=== PATIENT | female | born 1950 | race Caucasian/White ===

== ENCOUNTER 2018-04-23 17:56 | Emergency (ER) | payer OTHER ==
--- OUTSIDE RECORDS SUMMARY | 2018-04-23 17:58 | XMS REPORT | Clinical Summary ---
:1950 Author Organization [facility] Address [address] [place] [id number] Care Team Providers Name Role Phone Jose Alberto Andrade MD Primary Care Provider Allergies Active Allergy Reactions Severity Noted Date Comments Nsaids (Non-Steroidal Anti-Inflammatory Drug) 10/22/1999 Current Medications Not on file Active Problems Not on file Encounters Date Type Specialty Care Team Description 01/01/2018 Emergency Emergency Medicine Honorio Romo Laceration of right hand MD Dilshad without foreign body, initial encounter (Primary Dx) after 04/22/2017 Immunizations Name Dates Previously Given Next Due Tdap 01/01/2018 Social History Tobacco Use Types Packs/Day Years Used Date Never Smoker Smokeless Tobacco: Never Used Alcohol Use Drinks/Week oz/Week Comments Yes Sex Assigned at Date Recorded Not on file Last Filed Vital Signs Vital Sign Reading Time Taken Blood Pressure 134/86 01/01/2018 10:50 AM CDT Pulse 72 01/01/2018 10:50 AM CDT Temperature 36.6 C (97.8 F) 01/01/2018 10:50 AM CDT Respiratory Rate 16 01/01/2018 10:50 AM CDT Oxygen Saturation 100% 01/01/2018 10:50 AM CDT Inhaled Oxygen Concentration - - Weight 61.2 kg (135 lb) 01/01/2018 10:50 AM CDT Height 157.5 cm (5' 2") 01/01/2018 10:50 AM CDT Body Mass Index 24.69 01/01/2018 10:50 AM CDT Plan of Treatment Health Maintenance Due Date Last Done Comments BREAST CANCER SCREENING 2001 SHINGRIX VACCINE (#1) 2001 ZOSTER VACCINE 2011 PNEUMOCOCCAL POLYSACCHARIDE VACCINE AGE 65 AND OVER 2016 PNEUMOCOCCAL-13 2016 INFLUENZA VACCINE 02/10/2018 COLON CANCER SCREENING 06/02/2027 06/02/2017 Procedures Procedure Name Priority Date/Time Associated Diagnosis Comments XR HAND 3+ VW RIGHT STAT 01/01/2018 11:05 AM Results for this CDT procedure are in the results section. WA RESUP NPTERF WND Routine 01/01/2018 11:01 AM Results for this BODY 2.6-7.5 CM CDT procedure are in the results section. after 04/22/2017 Results XR Hand 3+ Vw Right (01/01/2018 11:05 AM) Narrative Performed At EXAMINATION:XR HAND 3VW RIGHT [facility] CLINICAL HISTORY:laceration glass windowpossible foreign body COMPARISON:None. IMPRESSION: There is no evidence of acute right hand fracture or dislocation. There are no radiopaque foreign bodies. [facility]-[id number] Procedure Note Hm Interface, Radiology Results Incoming - 01/01/2018 11:11 AM CDT EXAMINATION: XR HAND 3 VW RIGHT CLINICAL HISTORY: laceration glass window possible foreign body COMPARISON: None. IMPRESSION: There is no evidence of acute right hand fracture or dislocation. There are no radiopaque foreign bodies. [facility]-[id number] Performing Organization Address City/State/Zipcode Phone Number [facility] [address] [place] [address] LACERATION REPAIR (01/01/2018 11:01 AM) Narrative Performed At Honorio Romo MD 01/01/2018 11:37 AM Laceration Repair Performed by: HONORIO ROMO Authorized by: HONORIO ROMO Consent: Consent obtained:Verbal Consent given by:Patient Risks discussed:Pain and infection Alternatives discussed:No treatment Anesthesia (see MAR for exact dosages): Anesthesia method:Local infiltration Local anesthetic:Lidocaine 1% w/o epi Laceration details: Location:Hand Hand location:R palm Length (cm):3 Depth (mm):2 Repair type: Repair type:Simple Pre-procedure details: Preparation:Patient was prepped and draped in usual sterile fashion Exploration: Hemostasis achieved with:Direct pressure Wound exploration: wound explored through full range of motion and entire depth of wound probed and visualized Wound extent: no muscle damage noted and no underlying fracture noted Contaminated: no Treatment: Area cleansed with:Saline Amount of cleaning:Standard Irrigation solution:Sterile saline Irrigation volume:500 Irrigation method:Pressure wash Visualized foreign bodies/material removed: no Skin repair: Repair method:Sutures Suture size:4-0 Suture technique:Simple interrupted Number of sutures:8 Approximation: Approximation:Close [place] border: well-aligned Post-procedure details: Dressing:Adhesive bandage Patient tolerance of procedure:Tolerated well, no immediate complications Comments: 8 stitches divided on 4 sutured lacs after 04/22/2017 Insurance Payer Benefit Plan / Group Subscriber ID Type Phone Address MEDICARE MEDICARE PART A AND B xxxxxxxxxx Medicare [place], [place] AETNA MEDICARE AETNA MEDICARE HMO/PPO [facility] xxxxxxxx HMO AETNA AETNA HMO,POS,EPO, MC/EC xxxxxxxx HMO [phone] [id number]
--- NOTE | 2018-04-23 21:24 | EDPHYS ---
Physician Documentation [facility] Name: Loree Parekh Age: 68 yrs Sex: Female : 1950 Arrival Date: 04/23/2018 Time: 18:04 Bed 7 Private MD: None, None ED Physician Sam Guerrero HPI: 04/23 21:27 This 68 yrs old Female presents to ER via Ambulatory with complaints of arm wa swelling. 21:27 The patient or guardian complains of pain, that is acute, swelling, tenderness. The wa complaints affect the left bicep. Context: denies known injury. states has been doing a bunch of exercises in the gym and may have bruised it. wants to make sure it is not a blood clot. Onset: The symptoms/episode began/occurred 3 day(s) ago. Treatment prior to arrival includes: no previous treatment. Modifying factors: The symptoms are alleviated by nothing. the symptoms are aggravated by nothing. Associated signs and symptoms: The patient has no apparent associated signs or symptoms. Severity of symptoms: At their worst the symptoms were mild, in the emergency department the symptoms are unchanged. The patient has not experienced similar symptoms in the past. The patient has not recently seen a physician. Historical: - Allergies: 18:14 Naprosyn; aj - Home Meds: 18:14 irbesartan oral oral [Active]; amlodipine oral [Active]; venlafaxine oral oral [Active];aj - PMHx: 18:14 Hypertension; Depression; aj - PSHx: 18:14 cyst removal; aj - Immunization history:: Adult Immunizations up to date. - Social history:: Smoking status: Patient/guardian denies using tobacco. - Ebola Screening: : Patient negative for fever greater than or equal to 101.5 degrees Fahrenheit, and additional compatible Ebola Virus Disease symptoms Patient denies exposure to infectious person Patient denies travel to an Ebola-affected area in the 21 days before illness onset No symptoms or risks identified at this time. - Family history:: not pertinent. - Hospitalizations: : No recent hospitalization is reported. ROS: 21:29 Constitutional: Negative for fever, chills, and weight loss, Eyes: Negative for injury, wa pain, redness, and discharge, ENT: Negative for injury, pain, and discharge, Neck: Negative for injury, pain, and swelling, Cardiovascular: Negative for chest pain, palpitations, and edema, Respiratory: Negative for shortness of breath, cough, wheezing, and pleuritic chest pain, Abdomen/GI: Negative for abdominal pain, nausea, vomiting, diarrhea, and constipation, Back: Negative for injury and pain, : Negative for injury, bleeding, discharge, and swelling, Skin: Negative for injury, rash, and discoloration, Neuro: Negative for headache, weakness, numbness, tingling, and seizure. 21:29 MS/extremity: Positive for swelling, tenderness, of the left bicep. 21:29 All other systems are negative. Exam: 21:30 Constitutional: This is a well developed, well nourished patient who is awake, alert, wa and in no acute distress. Head/Face: Normocephalic, atraumatic. Eyes: Pupils equal round and reactive to light, extra-ocular motions intact. Lids and lashes normal. Conjunctiva and sclera are non-icteric and not injected. Cornea within normal limits. Periorbital areas with no swelling, redness, or edema. ENT: Nares patent. No nasal discharge, no septal abnormalities noted. Tympanic membranes are normal and external auditory canals are clear. Oropharynx with no redness, swelling, or masses, exudates, or evidence of obstruction, uvula midline. Mucous membranes moist. Neck: Trachea midline, no thyromegaly or masses palpated, and no cervical lymphadenopathy. Supple, full range of motion without nuchal rigidity, or vertebral point tenderness. No Meningismus. Chest/axilla: Normal chest wall appearance and motion. Nontender with no deformity. No lesions are appreciated. Cardiovascular: Regular rate and rhythm with a normal S1 and S2. No gallops, murmurs, or rubs. Normal PMI, no JVD. No pulse deficits. Respiratory: Lungs have equal breath sounds bilaterally, clear to auscultation and percussion. No rales, rhonchi or wheezes noted. No increased work of breathing, no retractions or nasal flaring. Abdomen/GI: Soft, non-tender, with normal bowel sounds. No distension or tympany. No guarding or rebound. No evidence of tenderness throughout. Back: No spinal tenderness. No costovertebral tenderness. Full range of motion. Skin: Warm, dry with normal turgor. Normal color with no rashes, no lesions, and no evidence of cellulitis. 21:30 Musculoskeletal/extremity: Extremities: grossly normal except: swelling, tenderness, mild ecchymosis in the left bicep. mildly tender. FROM. . Vital Signs: 18:14 BP 138 / 87; Pulse 87; Resp 19; Temp 97.4; Pulse Ox 98% on R/A; Weight 70.31 kg; Height aj 5 ft. 2 in. (157.48 cm); 20:22 BP 129 / 73; Pulse 60; Resp 16 S; Pulse Ox 99% on R/A; jd3 21:26 BP 156 / 87; Pulse 78; Resp 22; Temp 97.5; Pulse Ox 99% on R/A; cc 18:14 Body Mass Index 28.35 (70.31 kg, 157.48 cm) MDM: 19:13 Patient medically screened. in 21:31 Differential diagnosis: r/o DVT. suspect contusion. unlikely infection. normothermic. wa non-erythematous. Data reviewed: vital signs, nurses notes. Test interpretation: by ED physician or midlevel provider: venous doppler LUE: no DVT. Special discussion: contusion? observe. NSAIDs, close f/u PRN. 04/23 19:43 Order name: Extremity Venous Uni Ltd [facility] Administered Medications: No medications were administered Disposition: 04/23/18 21:23 Discharged to Home. Impression: Left upper arm contusion. - Condition is Stable. - Discharge Instructions: Contusion, [id number]. - Medication Reconciliation Form, Thank You Letter, Antibiotic Education, Prescription Opioid Use form. - Follow up: Private Physician; When: 5 - 6 days; Reason: Recheck today's complaints. - Problem is new. - Symptoms have improved. - Notes: please take ibuprofen for pain and swelling as discussed. return to ER immediately for rapidly worsening concerns. otherwise see your doctor within 1 week if symptoms do not improve Signatures: Dispatcher [employer] EDDara Coleman RN RN aj Appiah, William, MD MD wa Davies, Jonathon, RN RN jd3 Corrections: (The following items were deleted from the chart) 21:30 21:23 04/23/2018 21:23 Discharged to Home. Impression: Left upper arm contusion. jd3 Condition is Stable. Forms are Medication Reconciliation Form, Thank You Letter, Antibiotic Education, Prescription Opioid Use. Follow up: Private Physician; When: 5 - 6 days; Reason: Recheck today's complaints. Problem is new. Symptoms have improved. wa
--- NOTE | 2018-04-23 21:24 | ER ---
Nurse's Notes [facility] Name: Loree Parekh Age: 68 yrs Sex: Female : 1950 Arrival Date: 04/23/2018 Time: 18:04 Bed 7 Private MD: None, None Diagnosis: Left upper arm contusion Presentation: 04/23 18:11 Presenting complaint: Patient states: Pain and swelling to left biceps that started aj today. Patient reports increased exercise recently. Transition of care: patient was not received from another setting of care. Onset of symptoms was April 23, 2018. Risk Assessment: Do you want to hurt yourself or someone else? Patient reports no desire to harm self or others. Initial Sepsis Screen: Does the patient meet any 2 criteria? No. Patient's initial sepsis screen is negative. Does the patient have a suspected source of infection? No. Patient's initial sepsis screen is negative. Care prior to arrival: None. 18:11 Method Of Arrival: Ambulatory aj 18:11 Acuity: GLADIS 4 aj Triage Assessment: 18:14 General: Appears in no apparent distress. comfortable, Behavior is calm, cooperative, aj appropriate for age. Pain: Complains of pain in anterior aspect of left shoulder, left bicep and left antecubital area. Neuro: Level of Consciousness is awake, alert, obeys commands, Oriented to person, place, time, situation, Appropriate for age. Respiratory: Airway is patent Respiratory effort is even, unlabored, Respiratory pattern is regular, symmetrical. Derm: Skin is intact, is healthy with good turgor, Skin is pink, warm \T\ dry. normal. Musculoskeletal: Reports pain in anterior aspect of left shoulder, left bicep and left antecubital area. Historical: - Allergies: 18:14 Naprosyn; aj - Home Meds: 18:14 irbesartan oral oral [Active]; amlodipine oral [Active]; venlafaxine oral oral [Active];aj - PMHx: 18:14 Hypertension; Depression; aj - PSHx: 18:14 cyst removal; aj - Immunization history:: Adult Immunizations up to date. - Social history:: Smoking status: Patient/guardian denies using tobacco. - Ebola Screening: : Patient negative for fever greater than or equal to 101.5 degrees Fahrenheit, and additional compatible Ebola Virus Disease symptoms Patient denies exposure to infectious person Patient denies travel to an Ebola-affected area in the 21 days before illness onset No symptoms or risks identified at this time. - Family history:: not pertinent. - Hospitalizations: : No recent hospitalization is reported. Screenin:23 Abuse screen: Denies threats or abuse. Nutritional screening: No deficits noted. jd3 Tuberculosis screening: No symptoms or risk factors identified. Fall Risk Ambulatory Aid- None/Bed Rest/Nurse Assist (0 pts). Gait- Normal/Bed Rest/Wheelchair (0 pts) Mental Status- Oriented to own ability (0 pts). Total Hawk Fall Scale indicates No Risk (0-24 pts). Assessment: 19:21 General: Appears in no apparent distress. uncomfortable, Behavior is calm, cooperative, jd3 appropriate for age. Pain: Complains of pain in left bicep Pain currently is 7 out of 10 on a pain scale. Quality of pain is described as aching, Alleviated by reports not wanting pain medication. Neuro: Level of Consciousness is awake, alert, obeys commands, Oriented to person, place, time, situation. Cardiovascular: Denies chest pain, Capillary refill < 3 seconds Patient's skin is warm and dry. Respiratory: Airway is patent Respiratory effort is even, unlabored, Respiratory pattern is regular, symmetrical, Denies shortness of breath. GI: No signs and/or symptoms were reported involving the gastrointestinal system. : No signs and/or symptoms were reported regarding the genitourinary system. EENT: No signs and/or symptoms were reported regarding the EENT system. Derm: Skin is intact, Skin is dry, Skin is normal, Skin temperature is warm. Musculoskeletal: Circulation, motion, and sensation intact. Range of motion: intact in all extremities, pain with movement of left arm. 20:20 Reassessment: Patient appears in no apparent distress at this time. No changes from jd3 previously documented assessment. Patient and/or family updated on plan of care and expected duration. Pain level reassessed. Patient is alert, oriented x 3, equal unlabored respirations, skin warm/dry/pink. Mya TSANG at bedside. 21:05 Reassessment: Patient appears in no apparent distress at this time. No changes from jd3 previously documented assessment. Patient and/or family updated on plan of care and expected duration. Pain level reassessed. Patient is alert, oriented x 3, equal unlabored respirations, skin warm/dry/pink. ultrasound at bedside. 21:16 Reassessment: Patient appears in no apparent distress at this time. No changes from jd3 previously documented assessment. Patient and/or family updated on plan of care and expected duration. Pain level reassessed. Patient is alert, oriented x 3, equal unlabored respirations, skin warm/dry/pink. Dr. Guerrero at bedside. 21:28 Reassessment: Patient appears in no apparent distress at this time. No changes from jd3 previously documented assessment. Patient and/or family updated on plan of care and expected duration. Pain level reassessed. Patient is alert, oriented x 3, equal unlabored respirations, skin warm/dry/pink. reported understanding of discharge instructions, even and steady gait upon discharge. Vital Signs: 18:14 BP 138 / 87; Pulse 87; Resp 19; Temp 97.4; Pulse Ox 98% on R/A; Weight 70.31 kg; Height aj 5 ft. 2 in. (157.48 cm); 20:22 BP 129 / 73; Pulse 60; Resp 16 S; Pulse Ox 99% on R/A; jd3 21:26 BP 156 / 87; Pulse 78; Resp 22; Temp 97.5; Pulse Ox 99% on R/A; cc 18:14 Body Mass Index 28.35 (70.31 kg, 157.48 cm) ED Course: 18:04 Patient arrived in ED. mr 18:05 None, None is Private Physician. mr 18:12 Triage completed. aj 18:14 Arm band placed on right wrist. aj 19:13 Sam Guerrero MD is Attending Physician. ga 19:21 Herve Alford, RN is Primary Nurse. jd3 19:23 Patient has correct armband on for positive identification. Bed in low position. Call jd3 light in reach. Side rails up X 1. 21:28 No provider procedures requiring assistance completed. Patient did not have IV access jd3 during this emergency room visit. 22:08 Extremity Venous Uni Ltd US In Process Unspecified. EDMS Administered Medications: No medications were administered Outcome: 21:23 Discharge ordered by . wa 21:28 Discharged to home ambulatory. jd3 21:28 Condition: stable 21:28 Discharge instructions given to patient, Instructed on discharge instructions, follow up and referral plans. Demonstrated understanding of instructions, follow-up care. 21:30 Patient left the ED. jd3 Signatures: Dispatcher [employer] EDDara Coleman, RN TRINH mera [facility] m[facility] ColinShalaKirstieSam Meredith MD MD wa Davies, Jonathon, RN RN jd3 Corrections: (The following items were deleted from the chart) 21:12 21:02 Reassessment: Patient appears in no apparent distress at this time. No changes jd3 from previously documented assessment. Patient and/or family updated on plan of care and expected duration. Pain level reassessed. Patient is alert, oriented x 3, equal unlabored respirations, skin warm/dry/pink. awaiting ultrasound. jd3 21:16 20:20 Reassessment: Patient appears in no apparent distress at this time. No changes jd3 from previously documented assessment. Patient and/or family updated on plan of care and expected duration. Pain level reassessed. Patient is alert, oriented x 3, equal unlabored respirations, skin warm/dry/pink. jd3
--- NOTE | 2018-04-23 22:19 | RAD REPORT ---
EXAM DESCRIPTION: US - Extremity Venous Uni Ltd - 04/23/2018 10:08 pm CLINICAL HISTORY: swelling, redness L bicep area Left upper extremity swelling. COMPARISON: EXT VENOUS UNI LTD dated 02/12/2010 FINDINGS: Left upper extremity venous system was interrogated with Doppler technique. Normal flow, c ompressibility and augmentation was noted. There is no DVT present. IMPRESSION: No evidence of left upper extremity deep venous thrombosis.
== END 2018-04-23 21:30 | disposition home or self-care (01) ==
LOC: ER 17:56
DX: S40.022A Contusion of left upper arm, initial encounter (principal); X58.XXXA Exposure to other specified factors, initial encounter; Y93.9 Activity, unspecified; Y92.9 Unspecified place or not applicable; Z88.8 Allergy status to other drugs, medicaments and biological substances; I10 Essential (primary) hypertension; F32.9 Major depressive disorder, single episode, unspecified
CPT/HCPCS: 93971; 99283

== ENCOUNTER 2020-09-12 10:27 | Emergency (ER) | payer OTHER ==
--- OUTSIDE RECORDS SUMMARY | 2020-09-12 10:30 | XMS REPORT | Continuity of Care Document ---
:1950 Author Organization [facility] t Address [address] [place] [address] Care Team Providers Name Role Phone Nereida BURDEN Primary Care Physician Unavailable Nereida BURDEN Attending Clinician Unavailable Payers Payer Name Policy Type Policy Number Effective Date Expiration Date S fabian MEDICARE PART A [id number] 2016 AND B 00:00:00 [employer]ET[employer] SENIOR [id number] 2017 SUPPLEMENT-SECONDA 00:00:00 RY ONLY Problems This patient has no known problems. Allergies, Adverse Reactions, Alerts Allergy Allergy Status Severity Reaction(s) Onset Inactive Treating Comm ents Source Name Type Date Date Clinician Nsaids Propensi Active 1999- [place] (Non-Gurjit ty to 4-11 Methodi roidal adverse 00:00: st Anti-Inf reaction 00 lammator s to y Drug) drug Social History Social Habit Start Date Stop Date Quantity Comments Source Sex Assigned At [facility] ethodist Tobacco use and 2018-01-01 2018-01-[address] [facility]ist exposure 00:00:00 00:00:00 Alcohol intake 2018-01-01 2018-01-01 Current drinker [place] [facility] 00:00:00 00:00:00 of alcohol (finding) Smoking Status Start Date Stop Date Source Never smoker [place] [facility] t Medications This patient has no known medications. Immunizations Ordered Immunization Filled Immunization Date Status Commen ts Source Name Name Tdap 2018-01-01 [facility] 00:00:00 [facility] Procedures This patient has no known procedures. Plan of Care Planned Activity Planned Date Details Comments Source Future Scheduled 2020-02-11 INFLUENZA VACCINE [place] [facility] 00:00:00 [code = INFLUENZA VACCINE] Future Scheduled 2016 65+ PNEUMOCOCCAL [place] [facility] 00:00:00 VACCINE (1 of 1 - PPSV23) [code = 65+ PNEUMOCOCCAL VACCINE (1 of 1 - PPSV23)] Future Scheduled 2001 BREAST CANCER [facility] Test 00:00:00 SCREENING [code = BREAST CANCER SCREENING] Future Scheduled 2001 [facility] 00:00:00 [code = COLONOSCOPY SCREENING] Future Scheduled 2001 [facility]INES (#[facility] 00:00:00 [code = SHINGLES VACCINES (#1)] Future Scheduled 1969 Hepatitis C screening [place] [facility] 00:00:00 (procedure) [code = 930779309] Future Scheduled 1967 COVID-19 VACCINE (1 of [place] [facility] Test 00:00:00 2) [code = COVID-19 VACCINE (1 of 2)] Encounters Start End Encounter Admission Attending Care Care Encounter Source Date/Time Date/Time Type Type Clinicians Facility Department ID 2020-02-06 2020-02-06 Outpatient ANABELLE BURDEN [facility] [id number] 12:56:24 23:59:00 ALANIS dolan Results This patient has no known results.
[2020-09-12 13:28] LABS: ALT/SGPT 26 U/L (12-78); AST/SGOT 11 U/L (15-37); Albumin 3.9 g/dL (3.4-5.0); Alkaline Phosphatase 95 U/L (45-117); BUN Blood Urea Nitrogen 15 mg/dL (7-18); Bicarbonate 27 mmol/L (21-32); Bilirubin Direct < 0.1 mg/dL (0-0.2); Bilirubin Total 0.3 mg/dL (0.2-1.0); Glucose Level 100 mg/dL (74-106); Potassium 3.6 mmol/L (3.5-5.1); Protein, Total 7.3 g/dL (6.4-8.2); Sodium Level 143 mmol/L (136-145)
[2020-09-12 13:32] LABS: C-Reactive Protein < 2.90 mg/L (<3.00)
[2020-09-12 13:33] LABS: Hematocrit 35.4 % (36.0-45.0); MPV 8.8 fL (7.6-11.3)
[2020-09-12 13:34] LABS: Absolute Lymphocytes (CBC) 1.9 K/uL (0.7-4.9); Basophils % 1.9 % (0-1.3); Lymphocytes % 20.6 % (15.3-44.8)
--- NOTE | 2020-09-12 14:18 | RAD REPORT ---
EXAM DESCRIPTION: USExtremity Venous Uni Ltd09/12/2020 12:48 pm CLINICAL HISTORY: Right leg pain swelling. COMPARISON: None. FINDINGS: Right common femoral, superficial femoral, popliteal and right posterior tibial veins are compressible and demonstrate augmentation. Doppler demonstrates good flow. IMPRESSION: No evidence of deep venous thrombosis involving the right lower extremity.
--- NOTE | 2020-09-12 14:26 | ER ---
Nurse's Notes [facility] Name: Loree Parekh Age: 70 yrs Sex: Female : 1950 Arrival Date: 09/12/2020 Time: 10:29 Bed 14 Private MD: Diagnosis: Rash and other nonspecific skin eruption;Cellulitis of right lower limb Presentation: 09/12 10:42 Chief complaint: Patient states: Rash to whole body for 3-4 months. Sent in for eval. ll1 by Nilesh Giang. Has seen many specialist for this. No fever. Coronavirus screen: Client denies travel out of the [place] in the last 14 days. At this time, the client does not indicate any symptoms associated with coronavirus-19. Ebola Screen: Patient denies travel to an Ebola-affected area in the 21 days before illness onset. Initial Sepsis Screen: Does the patient meet any 2 criteria? No. Patient's initial sepsis screen is negative. Does the patient have a suspected source of infection? Yes: Skin breakdown/wound. Risk Assessment: Do you want to hurt yourself or someone else? Patient reports no desire to harm self or others. Onset of symptoms was June 12, 2020. 10:42 Method Of Arrival: Ambulatory ll1 10:42 Acuity: GLADIS 3 ll1 Historical: - Allergies: 10:46 PENICILLINS; ll1 - PMHx: 10:46 Depression; Hypertension; ll1 - PSHx: 10:46 cyst removal; ll1 - Immunization history:: Flu vaccine is up to date. - Social history:: Smoking status: Patient denies any tobacco usage or history of. Screenin:00 Abuse screen: Denies threats or abuse. Denies injuries from another. Nutritional dm14 screening: No deficits noted. Tuberculosis screening: No symptoms or risk factors identified. Fall Risk None identified. Assessment: 11:15 General: Appears in no apparent distress. comfortable, well groomed, Behavior is calm, dm14 cooperative, appropriate for age. Pain: Denies pain. 12:30 Reassessment: No changes from previously documented assessment. Reassessment: No dm14 changes from previously documented assessment. 14:00 Reassessment: No changes from previously documented assessment. dm14 Vital Signs: 10:42 BP 144 / 83; Pulse 83; Resp 17; Temp 98.1; Pulse Ox 100% ; Weight 70.31 kg; Height 5 ll1 ft. 2 in. (157.48 cm); Pain 0/10; 11:00 BP 149 / 112; Pulse 90; Resp 18; Pulse Ox 96% ; dm14 11:30 BP 152 / 130; Pulse 89; Resp 18; Pulse Ox 98% ; dm14 13:40 BP 139 / 79; Pulse 88; Resp 18; Pulse Ox 100% ; dm14 14:00 BP 125 / 69; Pulse 85; Resp 18; Pulse Ox 100% ; dm14 10:42 Body Mass Index 28.35 (70.31 kg, 157.48 cm) ll1 ED Course: 10:29 Patient arrived in ED. rg4 10:44 Triage completed. ll1 10:46 Arm band placed on Patient placed in an exam room, on a stretcher. ll1 11:26 Sylvia Sesay RN is Primary Nurse. dm14 11:38 Gerson Trujillo MD is Attending Physician. kdr 13:03 ESR Sent. dm14 13:04 CRP Sent. dm14 13:04 LFT's Sent. dm14 13:04 Chem 7 Sent. dm14 13:04 CBC with Diff Sent. dm14 13:14 US Extremity Venous Unilateral Ltd Sent. sv 14:00 Patient has correct armband on for positive identification. Bed in low position. Call dm14 light in reach. 14:25 Jose Alberto Andrade MD is Referral Physician. kdr 14:51 No provider procedures requiring assistance completed. IV discontinued, intact, dm14 bleeding controlled, No redness/swelling at site. Pressure dressing applied. 15:14 Primary Nurse role handed off by Sylvia Sesay RN sv 23:04 US In Process Unspecified. EDMS Administered Medications: No medications were administered Outcome: 14:26 Discharge ordered by . kdr 14:51 Discharged to home ambulatory. dm14 14:51 Condition: stable 14:51 Discharge instructions given to patient, Instructed on discharge instructions, follow up and referral plans. medication usage, Demonstrated understanding of instructions, follow-up care, medications. 14:53 Patient left the ED. dm14 15:15 Patient left the ED. sv 15:19 Patient left the ED. em1 Signatures: Dispatcher [employer] EDMS Anastasiya Stratton RN RN sv Rittger, MD MD cali Nieto Eric em1 Shannon Oliveira rg4 Joseph Franks RN RN ll1 Sylvia Sesay RN RN dm14 Corrections: (The following items were deleted from the chart) 14: General: Appears in no apparent distress. comfortable, well groomed, Behavior is dm14 calm, cooperative, appropriate for age, dm14 14: Pain: Denies pain. dm14 dm14
--- NOTE | 2020-09-12 14:27 | EDPHYS ---
Physician Documentation [facility] Name: Loree Parekh Age: 70 yrs Sex: Female : 1950 Arrival Date: 09/12/2020 Time: 10:29 Bed 14 Private MD: ED Physician Gerson Trujillo HPI: 09/12 16:48 This 70 yrs old Female presents to ER via Ambulatory with complaints of Rash. kdr 16:48 The patient's rash thought to be caused by an unknown cause, The patient has seen kdr multiple specialties without conclusive diagnosis being made. It is thought that this may be the result of Lamictal. She stopped this medication 16 days [employer]. The rash is located on the right leg and left leg. The rash can be described as diffuse, erythematous, macular, papular, patchy, raised, urticarial. Onset: The symptoms/episode began/occurred gradually, 4 month(s) ago. Associated signs and symptoms: Pertinent positives: burning sensation, itching, Pertinent negatives: difficulty breathing, fever, nausea, swelling of lips, swelling of throat, swelling of tongue, wheezing. Severity of symptoms: At their worst the symptoms were moderate severe incapacitating last few days it has become much worse. Treatment given at home: Multiple treatments including antifungal, anti parasitic, allergic (steroids) and others without full relief. The patient has not experienced similar symptoms in the past. Multiple MDs. Historical: - Allergies: 10:46 PENICILLINS; ll1 - PMHx: 10:46 Depression; Hypertension; ll1 - PSHx: 10:46 cyst removal; ll1 - Immunization history:: Flu vaccine is up to date. - Social history:: Smoking status: Patient denies any tobacco usage or history of. ROS: 16:48 Constitutional: Negative for fever, chills, and weight loss, Eyes: Negative for injury, kdr pain, redness, and discharge, Neck: Negative for injury, pain, and swelling, Cardiovascular: Negative for chest pain, palpitations, and edema, Respiratory: Negative for shortness of breath, cough, wheezing, and pleuritic chest pain, Abdomen/GI: Negative for abdominal pain, nausea, vomiting, diarrhea, and constipation, Back: Negative for injury and pain, : Negative for injury, bleeding, discharge, and swelling, MS/Extremity: Negative for injury and deformity, Neuro: Negative for headache, weakness, numbness, tingling, and seizure activity. Psych: Negative for depression, anxiety, suicide ideation, homicidal ideation, and hallucinations, Allergy/Immunology: Negative for hives, rash, and allergies, Endocrine: Negative for neck swelling, polydipsia, polyuria, polyphagia, and marked weight changes, Hematologic/Lymphatic: Negative for swollen nodes, abnormal bleeding, and unusual bruising. 16:48 Skin: Positive for rash. Exam: 17:30 Constitutional: This is a well developed, well nourished patient who is awake, alert, kdr and in no acute distress. Head/Face: Normocephalic, atraumatic. Eyes: Pupils equal round and reactive to light, extra-ocular motions intact. Lids and lashes normal. Conjunctiva and sclera are non-icteric and not injected. Cornea within normal limits. Periorbital areas with no swelling, redness, or edema. Neck: Trachea midline, no thyromegaly or masses palpated, and no cervical lymphadenopathy. Supple, full range of motion without nuchal rigidity, or vertebral point tenderness. No Meningismus. Chest/axilla: Normal chest wall appearance and motion. Nontender with no deformity. No lesions are appreciated. Cardiovascular: Regular rate and rhythm with a normal S1 and S2. No gallops, murmurs, or rubs. Normal PMI, no JVD. No pulse deficits. Respiratory: Lungs have equal breath sounds bilaterally, clear to auscultation and percussion. No rales, rhonchi or wheezes noted. No increased work of breathing, no retractions or nasal flaring. Abdomen/GI: Soft, non-tender, with normal bowel sounds. No distension or tympany. No guarding or rebound. No evidence of tenderness throughout. Back: No spinal tenderness. No costovertebral tenderness. Full range of motion. MS/ Extremity: Pulses equal, no cyanosis. Neurovascular intact. Full, normal range of motion. Neuro: Awake and alert, GCS 15, oriented to person, place, time, and situation. Cranial nerves II-XII grossly intact. Motor strength 5/5 in all extremities. Sensory grossly intact. Cerebellar exam normal. Normal gait. Psych: Awake, alert, with orientation to person, place and time. Behavior, mood, and affect are within normal limits. 17:30 Skin: Appearance: normal except for affected area, cellulitis, that is mild, on the lateral aspect of right calf, right calf, right Achilles, medial aspect of right calf and right chowdary, induration, rash a moderate rash is noted, rash can be described as excoriated, macular, nonspecific, papular, and is diffusely located, Worse on her legs. Vital Signs: 10:42 BP 144 / 83; Pulse 83; Resp 17; Temp 98.1; Pulse Ox 100% ; Weight 70.31 kg; Height 5 ll1 ft. 2 in. (157.48 cm); Pain 0/10; 11:00 BP 149 / 112; Pulse 90; Resp 18; Pulse Ox 96% ; dm14 11:30 BP 152 / 130; Pulse 89; Resp 18; Pulse Ox 98% ; dm14 13:40 BP 139 / 79; Pulse 88; Resp 18; Pulse Ox 100% ; dm14 14:00 BP 125 / 69; Pulse 85; Resp 18; Pulse Ox 100% ; dm14 10:42 Body Mass Index 28.35 (70.31 kg, 157.48 cm) ll1 MDM: 14:26 Patient medically screened. kdr 17:30 Data reviewed: vital signs, nurses notes, lab test result(s), radiologic studies. kdr Counseling: I had a detailed discussion with the patient and/or guardian regarding: the historical points, exam findings, and any diagnostic results supporting the discharge/admit diagnosis, lab results, radiology results, the need for outpatient follow up. Physician consultation: Jose Alberto Andrade MD regarding consult, patient's condition, outpatient follow-up, and will see patient in office, next week. 09/12 11:57 Order name: CBC with Diff kdr 09/12 11:57 Order name: Chem 7 kdr 09/12 11:57 Order name: LFT's kdr 09/12 11:57 Order name: CRP kdr 09/12 11:57 Order name: ESR kdr 09/12 13:32 Order name: Basic Metabolic Panel; Complete Time: 13:51 EDMS 09/12 11:57 Order name: US Extremity Venous Unilateral Ltd kdr 09/12 13:32 Order name: Liver (Hepatic) Function; Complete Time: 13:51 EDMS 09/12 13:32 Order name: C-Reactive Protein; Complete Time: 13:51 EDMS 09/12 13:35 Order name: CBC with Automated Diff; Complete Time: 13:51 [facility] 09/12 13:50 Order name: Sedimentation Rate, Westergren; Complete Time: 13:51 [facility] 09/12 14:20 Order name: [facility] 09/12 15:15 Order name: LAB Add On sv Administered Medications: No medications were administered Disposition: 09/12/20 14:26 Discharged to Home. Impression: Rash and other nonspecific skin eruption, Cellulitis of right lower limb. - Condition is Stable. - Discharge Instructions: Cellulitis, Adult, Dyza-sz-Eeyf, Rash, [id number]. - Prescriptions for Doxycycline Hyclate 100 mg Oral Tablet - take 1 tablet by ORAL route every 12 hours; 20 tablet. - Medication Reconciliation Form, Thank You Letter, Antibiotic Education form. - Follow up: Jose Alberto Andrade MD; When: 24 Hours; Reason: Further diagnostic work-up, Recheck today's complaints, Continuance of care, Re-evaluation by your physician. - Problem is an ongoing problem. - Symptoms are unchanged. Signatures: Dispatcher [employer] [facility] Anastasiya Stratton RN RN Gerson Vicente MD MD kdr Martinez, Eric em1 Joseph Franks RN RN ll1 Sylvia Sesay RN RN dm14 Corrections: (The following items were deleted from the chart) 14:53 14:26 09/12/2020 14:26 Discharged to Home. Impression: Rash and other nonspecific skin dm14 eruption; Cellulitis of right lower limb. Condition is Stable. Forms are Medication Reconciliation Form, Thank You Letter, Antibiotic Education, Prescription Opioid Use. Follow up: Jose Alberto Andrade; When: 24 Hours; Reason: Further diagnostic work-up, Recheck today's complaints, Continuance of care, Re-evaluation by your physician. Problem is an ongoing problem. Symptoms are unchanged. kdr 15:15 14:53 09/12/2020 14:26 Discharged to Home. Impression: Rash and other nonspecific skin sv eruption; Cellulitis of right lower limb. Condition is Stable. Discharge Instructions: Cellulitis, Adult, Jnjb-[id number]-Andg, Rash, Ekrq-[id number]-Sqqf. Prescriptions for Doxycycline Hyclate 100 mg Oral Tablet - take 1 tablet by ORAL route every 12 hours; 20 tablet. and Forms are Medication Reconciliation Form, Thank You Letter, Antibiotic Education. Follow up: Jose Alberto Andrade; When: 24 Hours; Reason: Further diagnostic work-up, Recheck today's complaints, Continuance of care, Re-evaluation by your physician. Problem is an ongoing problem. Symptoms are unchanged. dm14 15:19 15:15 09/12/2020 14:26 Discharged to Home. Impression: Rash and other nonspecific skin em1 eruption; Cellulitis of right lower limb. Condition is Stable. Discharge Instructions: Cellulitis, Adult, Pewk-mu-Dunp, Rash, Edul-hk-Lbbo. Prescriptions for Doxycycline Hyclate 100 mg Oral Tablet - take 1 tablet by ORAL route every 12 hours; 20 tablet. and Forms are Medication Reconciliation Form, Thank You Letter, Antibiotic Education. Follow up: Jose Alberto Andrade; When: 24 Hours; Reason: Further diagnostic work-up, Recheck today's complaints, Continuance of care, Re-evaluation by your physician. Problem is an ongoing problem. Symptoms are unchanged. sv
[2020-09-13 10:10] VITALS: BP 125/69; TEMP 98.1; O2SAT 100
== END 2020-09-12 15:19 | disposition home or self-care (01) ==
LOC: ER 10:27
DX: L03.115 Cellulitis of right lower limb (principal); I10 Essential (primary) hypertension; Z88.0 Allergy status to penicillin
CPT/HCPCS: 36415; 80048; 80076; 83036; 85025; 85652; 86140; 93971; 99283